=== PATIENT | female | born 1945 | race Caucasian/White ===

== ENCOUNTER 2022-01-16 21:32 | Emergency (ER) | payer MEDICARE, OTHER ==
[2022-01-16 21:59] VITALS: BP 152/86; PULSE 109
[2022-01-16] MEDS ORDERED: predniSONE 10 MG Tab ONE (22:00)
== END 2022-01-16 22:18 | disposition home or self-care (01) ==
LOC: MERGE 21:32 → LB.ED 21:32
DX: T63.441A Toxic effect of venom of bees, accidental (unintentional), initial encounter (principal)
CPT/HCPCS: 99282; J7512